=== PATIENT | male | born 1960 | race Caucasian/White ===

== ENCOUNTER 2017-06-07 11:25 | Outpatient (CLI) | payer OTHER ==
[2017-06-07 13:49] LABS: HB2 TOTAL 16.5 g/dL; HEMOGLOBIN A1C 1.21 g/dL; HEMOGLOBIN A1C % 8.9 % (4.6-6.2)
== END 2017-06-07 11:26 | disposition home or self-care (01) ==
LOC: LAB.R 11:25
PROVIDERS: ATTEND Physician Assistant Medical
DX: E11.9 Type 2 diabetes mellitus without complications (principal); Z79.899 Other long term (current) drug therapy
CPT/HCPCS: 82947; 83036

== ENCOUNTER 2017-09-30 14:45 | Emergency (ER) | payer OTHER ==
[2017-09-30] MEDS ORDERED: KETOROLAC 60 MG/2 ML VIAL IM STA (15:06)
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
[2017-09-30 15:16] VITALS: BP 129/88
--- NOTE | 2017-09-30 16:09 | XRAY Report ---
EXAM: RIGHT RIB RADIOGRAPHY EXAM DATE: 09/30/2017 03:49 PM. CLINICAL HISTORY: R sided chest pain. COMPARISON: None. TECHNIQUE: 1 view of the chest and 2 views of the ribs. FINDINGS: Bones: No acute fractures. Lungs: No dense consolidation. No pneumothorax. No pleural effusions. Mediastinum: Heart and mediastinal contours are unremarkable. Other: None. IMPRESSION: Unremarkable chest and rib radiography. [facility] Referring Provider Line: [phone] SITE ID: [id number]
--- NOTE | 2017-09-30 16:09 | XRAY Preliminary Report ---
Exam: XR RIBS W/PA CHEST RT IMPRESSION: Unremarkable chest and rib radiography. [facility] SITE ID: [id number]
[2017-09-30 16:10] LABS: BASOPHILS # (AUTO) 0.1 10^3/uL (0.0-0.1); BASOPHILS % (AUTO) 0.8 %; EOSINOPHILS % (AUTO) 0.2 %; HGB - HEMOGLOBIN 14.2 g/dL (14.0-18.0); LYMPHOCYTES # (AUTO) 2.7 10^3/uL (1.5-3.5); LYMPHOCYTES % (AUTO) 22.3 %; MEAN CORPUSCULAR HGB CONC 33.6 g/dL (32.0-36.0); MEAN CORPUSCULAR VOLUME 95.4 fL (80.0-94.0); NEUTROPHILS # (AUTO) 8.2 10^3/uL (1.5-6.6); NEUTROPHILS % (AUTO) 68.7 %; PLT - PLATELET COUNT 406 10^3/uL (130-450); RED BLOOD COUNT 4.44 10^6/uL (4.70-6.10); RED CELL DISTRIBUTION WIDTH 12.7 % (12.0-15.0)
[2017-09-30 16:37] LABS: ALBUMIN 4.1 g/dL (3.2-5.5); ALBUMIN/GLOBULIN RATIO 1.1 (1.0-2.2); BILIRUBIN,TOTAL 0.6 mg/dL (0.2-1.0); CALCIUM 9.3 mg/dL (8.5-10.3); TOTAL PROTEIN 7.7 g/dL (6.7-8.2)
== END 2017-09-30 16:50 | disposition home or self-care (01) ==
LOC: ED 14:45
DX: S29.011A Strain of muscle and tendon of front wall of thorax, initial encounter (principal); X50.9XXA Other and unspecified overexertion or strenuous movements or postures, initial encounter; I10 Essential (primary) hypertension; E11.9 Type 2 diabetes mellitus without complications; Z79.84 Long term (current) use of oral hypoglycemic drugs
CPT/HCPCS: 36415; 80053; 83690; 84484; 85025; 93005; 99282; 99283

== ENCOUNTER 2017-10-14 08:05 | Outpatient (CLI) | payer OTHER ==
[2017-10-14 11:50] LABS: CHOL/HDL RATIO 3.1 (<5.0); CHOLESTEROL 151 mg/dL; HDL CHOLESTEROL 48 mg/dL; LDL CHOLESTEROL,CALCULATED 79 mg/dL; LDL/HDL RATIO 1.6 (<3.6); VLDL CHOLESTEROL 24 mg/dL
[2017-10-14 12:14] LABS: HB2 TOTAL 16.1 g/dL; HEMOGLOBIN A1C 0.9 g/dL; HEMOGLOBIN A1C % 7.3 % (4.6-6.2)
== END 2017-10-14 08:06 | disposition home or self-care (01) ==
LOC: LAB.R 08:05
PROVIDERS: ATTEND Physician Assistant Medical
DX: Z12.5 Encounter for screening for malignant neoplasm of prostate (principal); Z79.899 Other long term (current) drug therapy; E11.9 Type 2 diabetes mellitus without complications; E03.9 Hypothyroidism, unspecified; Z00.00 Encounter for general adult medical examination without abnormal findings
CPT/HCPCS: 80061; 83036; 83721; 84153; 84443

== ENCOUNTER 2017-11-01 19:04 | Outpatient (CLI) | payer OTHER ==
--- NOTE | 2017-11-02 09:20 | Ultrasound Report ---
Procedure Date: 11/01/2017 Accession Number: [id number] / [id number] Procedure: US - Head or Neck Soft Tissue CPT Code: FULL RESULT: EXAM: Head or Neck Soft Tissue DATE: 11/01/2017 7:39 PM CLINICAL HISTORY: HYPOTHYROIDISM COMPARISON: None. TECHNIQUE: Real time sonographic imaging of the thyroid was performed by the vac press operator. Multiple instruments sales representative static images were saved for review. FINDINGS: THYROID GLAND: Right Lobe: 4.4 x 3.4 x 3.3 cm, volume 26 cc. Normal background echotexture. Right Lobe Nodules: There is a 3.3 x 3.1 x 2.8 cm spongiform nodule in the midportion of the right lobe. Left Lobe: 3.9 x 1.3 x 1.2 cm, volume 3 cc. Normal background echotexture. Left Lobe Nodules: Tiny nodules are present, the largest, in the lower pole, measuring 0.9 x 0.8 x 0.5 cm.. Isthmus: 0.5 cm AP. Isthmic Nodules: None. LYMPH NODES: No adenopathy demonstrated in the central or lateral compartment. OTHER: None. IMPRESSION: 1. Spongiform 3.3 cm nodule in the midportion of the right lobe. Consider fine-needle aspiration, based on CHRISTOPHER recommendations. Tiny subcentimeter nodules in the left lobe. Management recommendations are based on 2015 [place] [employer] Management Guidelines for Adult Patients with Thyroid Nodules and Differentiated Thyroid Cancer. [facility]
== END 2017-11-01 19:05 | disposition home or self-care (01) ==
LOC: DI 19:04
PROVIDERS: ATTEND Physician Assistant Medical
DX: E03.9 Hypothyroidism, unspecified (principal); E04.1 Nontoxic single thyroid nodule
CPT/HCPCS: 76536

== ENCOUNTER 2018-01-02 08:49 | Outpatient (CLI) | payer OTHER ==
[2018-01-02] MEDS ORDERED: BUFFERED LIDOCAINE 10 ML SYRINGE IU ONE (11:03)
--- NOTE | 2018-01-02 11:46 | Ultrasound Report ---
Reason: THYROID LESION Procedure Date: 01/02/2018 Accession Number: [id number] / [id number] Procedure: US - Fine Needle Aspiration CPT Code: FULL RESULT: PROCEDURE: ULTRASOUND GUIDED FNA Comparisons: Thyroid ultrasound 11/01/2017 PREOPERATIVE DIAGNOSIS: Nodule in right thyroid lobe POSTOPERATIVE DIAGNOSIS: Same TECHNIQUE: Following written and oral informed consent including procedure risks and alternatives, the patient was brought to the ultrasound suite and positioned. A standard timeout was performed which verified the patient's name, date of , and right thyroid gland as the appropriate site. Using local anesthesia, sterile technique, and direct ultrasound control, a 22-gauge needle was advanced to the nodule. A total of 4 aspirate samples were obtained. The patient tolerated the procedure well and there were no immediate complications. FINDINGS: Real-time ultrasound performed with static images saved to the PACS demonstrating the needle directed into the nodule. IMPRESSION: Uncomplicated ultrasound guided fine needle aspiration as described. Pathology results will be reported separately. [facility]
== END 2018-01-02 08:50 | disposition home or self-care (01) ==
LOC: DI 08:49
PROVIDERS: ATTEND Surgery
DX: E04.1 Nontoxic single thyroid nodule (principal)
CPT/HCPCS: 10022

== ENCOUNTER 2018-01-09 06:12 | Day surgery (SDC) | payer OTHER ==
[2018-01-09] MEDS ORDERED: LACTATED RINGERS 1,000 ML IV ONE (07:06)
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
[2018-01-09] MEDS ORDERED: MIDAZOLAM 2 MG/2 ML VIAL IVP ONE (08:05)
[2018-01-09] MEDS ORDERED: fentaNYL 250 MCG/5 ML VIAL IVP ONE (08:05)
[2018-01-09 09:18] VITALS: BP 110/69
== END 2018-01-09 06:13 | disposition home or self-care (01) ==
LOC: SDS 06:12
PROVIDERS: ATTEND Surgery
PROC: 0DBN8ZZ Excision of Sigmoid Colon, Via Natural or Artificial Opening Endoscopic (ICD-10-PCS; principal; 2018-01-09 07:30)
DX: Z12.11 Encounter for screening for malignant neoplasm of colon (principal); D12.5 Benign neoplasm of sigmoid colon; K64.8 Other hemorrhoids; K57.30 Diverticulosis of large intestine without perforation or abscess without bleeding; E11.9 Type 2 diabetes mellitus without complications; I10 Essential (primary) hypertension; G47.30 Sleep apnea, unspecified; Z87.891 Personal history of nicotine dependence
CPT/HCPCS: 45380; J3010; J7120

== ENCOUNTER 2018-02-09 08:00 | Outpatient (CLI) | payer OTHER ==
[2018-02-09 13:17] LABS: HB2 TOTAL 15.2 g/dL; HEMOGLOBIN A1C 0.99 g/dL; HEMOGLOBIN A1C % 8.1 % (4.6-6.2)
== END 2018-02-09 08:01 ==
LOC: LAB.R 08:00
PROVIDERS: ATTEND Physician Assistant Medical
DX: Z79.899 Other long term (current) drug therapy (principal); E11.9 Type 2 diabetes mellitus without complications
CPT/HCPCS: 82947; 83036

== ENCOUNTER 2018-02-13 11:02 | Outpatient (CLI) | payer OTHER | END 2018-02-13 11:03 | disposition home or self-care (01) | LOC: SC 11:02 | PROVIDERS: ATTEND Internal Medicine Pulmonary Disease | DX: G47.33 Obstructive sleep apnea (adult) (pediatric) (principal) | CPT/HCPCS: 99203; 99212 ==

== ENCOUNTER 2018-05-22 19:16 | Outpatient (CLI) | payer OTHER | END 2018-05-22 19:17 | disposition home or self-care (01) | LOC: SC 19:16 | PROVIDERS: ATTEND Internal Medicine Pulmonary Disease | DX: G47.33 Obstructive sleep apnea (adult) (pediatric) (principal) | CPT/HCPCS: 95810 ==

== ENCOUNTER 2018-05-24 10:20 | Outpatient (CLI) | payer OTHER ==
[2018-05-24 13:55] LABS: HB2 TOTAL 15.6 g/dL; HEMOGLOBIN A1C 1.14 g/dL; HEMOGLOBIN A1C % 8.8 % (4.6-6.2)
== END 2018-05-24 23:59 | disposition home or self-care (01) ==
LOC: LAB.R 10:20
PROVIDERS: ATTEND Physician Assistant Medical
DX: E11.9 Type 2 diabetes mellitus without complications (principal); Z79.899 Other long term (current) drug therapy
CPT/HCPCS: 82947; 83036

== ENCOUNTER 2018-06-01 08:00 | Outpatient (CLI) | payer OTHER | END 2018-06-01 23:59 | disposition home or self-care (01) | LOC: LAB.R 08:00 | PROVIDERS: ATTEND Physician Assistant Medical | DX: Z79.899 Other long term (current) drug therapy (principal); E11.9 Type 2 diabetes mellitus without complications | CPT/HCPCS: 82043 ==

== ENCOUNTER 2018-06-01 13:46 | Outpatient (CLI) | payer OTHER | END 2018-06-01 13:47 | disposition home or self-care (01) | LOC: SC 13:46 | PROVIDERS: ATTEND Nurse Practitioner Family | DX: G47.33 Obstructive sleep apnea (adult) (pediatric) (principal); G47.00 Insomnia, unspecified | CPT/HCPCS: 99212; 99214 ==

== ENCOUNTER 2018-09-19 08:47 | Outpatient (CLI) | payer OTHER ==
[2018-09-19 09:34] LABS: ALBUMIN 4.5 g/dL (3.2-5.5); ALBUMIN/GLOBULIN RATIO 1.4 (1.0-2.2); ALKALINE PHOSPHATASE 65 IU/L (42-121); ALT ALANINE AMINOTRANSFERASE 37 IU/L (10-60); AST ASPARTATE AMINOTRANSFERASE 26 IU/L (10-42); BUN - BLOOD UREA NITROGEN 17 mg/dL (6-20); CALCIUM 9.9 mg/dL (8.5-10.3); CARBON DIOXIDE - CO2 24 mmol/L (21-32); CHLORIDE 101 mmol/L (101-111); CHOL/HDL RATIO 3.2 (<5.0); CHOLESTEROL 177 mg/dL; CREATININE 0.7 mg/dL (0.6-1.2); GFR - MDRD 117 (>89); GLUCOSE 141 mg/dL (70-100); HB2 TOTAL 14.8 g/dL; HDL CHOLESTEROL 56 mg/dL; HEMOGLOBIN A1C 0.53 g/dL; HEMOGLOBIN A1C % 5.4 % (4.6-6.2); LDL CHOLESTEROL,CALCULATED 108 mg/dL; LDL/HDL RATIO 1.9 (<3.6); SODIUM 137 mmol/L (135-145); TOTAL PROTEIN 7.8 g/dL (6.7-8.2); VLDL CHOLESTEROL 13 mg/dL
[2018-09-19 09:37] LABS: CREATININE,URINE 92.1 mg/dL
[2018-09-19 09:38] LABS: MICROALBUMIN,URINE < 0.2 mg/dL (0-300.0)
== END 2018-09-19 08:48 | disposition home or self-care (01) ==
LOC: LAB 08:47
PROVIDERS: ATTEND Internal Medicine
DX: E11.9 Type 2 diabetes mellitus without complications (principal)
CPT/HCPCS: 36415; 80053; 80061; 82043; 82570; 83036; 83721

== ENCOUNTER 2019-11-14 13:18 | Outpatient (CLI) | payer OTHER ==
[2019-11-14 13:47] LABS: BASOPHILS # (AUTO) 0.1 10^3/uL (0.0-0.1); BASOPHILS % (AUTO) 0.8 %; EOSINOPHILS # (AUTO) 0.1 10^3/uL (0.0-0.7); EOSINOPHILS % (AUTO) 0.8 %; HGB - HEMOGLOBIN 13.3 g/dL (14.0-18.0); LYMPHOCYTES # (AUTO) 1.9 10^3/uL (1.5-3.5); LYMPHOCYTES % (AUTO) 30.8 %; MEAN CORPUSCULAR HEMOGLOBIN 31.9 pg (27.0-31.0); MEAN CORPUSCULAR HGB CONC 33.7 g/dL (32.0-36.0); MEAN CORPUSCULAR VOLUME 94.7 fL (80.0-94.0); MEAN PLATELET VOLUME 9.6 fL (7.4-11.4); MONOCYTES # (AUTO) 0.6 10^3/uL (0.0-1.0); MONOCYTES % (AUTO) 9.1 %; NEUTROPHILS # (AUTO) 3.6 10^3/uL (1.5-6.6); PLT - PLATELET COUNT 377 10^3/uL (130-450); RED BLOOD COUNT 4.17 10^6/uL (4.70-6.10); RED CELL DISTRIBUTION WIDTH 11.9 % (12.0-15.0); WHITE BLOOD COUNT 6.1 x10^3/uL (4.8-10.8)
[2019-11-14 13:59] LABS: CREATININE,URINE 103.1 mg/dL; MICROALBUM/CREATININE RATIO,UR 4.8 ug/mg (<30.0); MICROALBUMIN,URINE 0.5 mg/dL (0-300.0)
[2019-11-14 14:08] LABS: ALBUMIN 4.3 g/dL (3.2-5.5); ALBUMIN/GLOBULIN RATIO 1.3 (1.0-2.2); ALKALINE PHOSPHATASE 63 IU/L (42-121); ALT ALANINE AMINOTRANSFERASE 45 IU/L (10-60); AST ASPARTATE AMINOTRANSFERASE 22 IU/L (10-42); BILIRUBIN,TOTAL 1.2 mg/dL (0.2-1.0); BUN - BLOOD UREA NITROGEN 16 mg/dL (6-20); CALCIUM 9.4 mg/dL (8.5-10.3); CARBON DIOXIDE - CO2 27 mmol/L (21-32); CHLORIDE 99 mmol/L (101-111); CHOLESTEROL 143 mg/dL; CREATININE 0.8 mg/dL (0.6-1.2); GLUCOSE 196 mg/dL (70-100); HDL CHOLESTEROL 47 mg/dL; LDL CHOLESTEROL,CALCULATED 78 mg/dL; LDL/HDL RATIO 1.7 (<3.6); SODIUM 135 mmol/L (135-145); TOTAL PROTEIN 7.7 g/dL (6.7-8.2); VLDL CHOLESTEROL 18 mg/dL
[2019-11-14 14:20] LABS: THYROID STIMULATING HORMONE 0.36 uIU/mL (0.34-5.60)
[2019-11-14 14:22] LABS: FREE T4 (FREE THYROXINE) 0.96 ng/dL (0.58-1.64)
== END 2019-11-14 13:19 | disposition home or self-care (01) ==
LOC: LAB 13:18
PROVIDERS: ATTEND Family Medicine
DX: E11.9 Type 2 diabetes mellitus without complications (principal); Z78.9 Other specified health status; I10 Essential (primary) hypertension
CPT/HCPCS: 36415; 80053; 80061; 81599; 82043; 82570; 83036; 83721; 84439; 84443; 85025

== ENCOUNTER 2020-02-28 20:18 | Outpatient (CLI) | payer OTHER ==
--- NOTE | 2020-02-29 12:45 | Ultrasound Report ---
PROCEDURE: Duplex Ext Veins Left INDICATIONS: VASCULITIS LEFT ANKLE TECHNIQUE: Real-time imaging, as well as color and pulse Doppler interrogation, were performed of the lower extr emity deep veins from the inguinal ligament to the popliteal fossa. COMPARISON: None. FINDINGS: The deep veins are normally compressible, and free of intraluminal thrombus. Color and pu lse Doppler demonstrate normal phasic intraluminal flow. There is normal augmentation response to di stal compression maneuver. There is a hypoechoic focus in the medial posterior fossa measuring 2.9 x 0.9 x 2.8 cm. IMPRESSION: No deep venous thrombosis. Blackmon's cyst is noted. Reviewed by: Nori Shane MD on 02/29/2020 12:43 PM PST Approved by: Nori Shane MD on 02/29/2020 12:43 PM [facility] Station ID: [id number]
== END 2020-02-28 20:19 | disposition home or self-care (01) ==
LOC: DI 20:18
PROVIDERS: ATTEND Family Medicine
DX: I77.6 Arteritis, unspecified (principal); M71.22 Synovial cyst of popliteal space [Baker], left knee

== ENCOUNTER 2020-05-15 17:36 | Outpatient (CLI) | payer OTHER ==
--- NOTE | 2020-05-16 12:27 | XRAY Report ---
PROCEDURE: Shoulder 3 View BILAT INDICATIONS: BILATERAL SHOULDER PAIN TECHNIQUE: 6 views of the shoulder were acquired. COMPARISON: None. FINDINGS: Bones: No fractures or dislocations but there is moderate osteoarthritis at the AC joint and mild ar thritis at the glenohumeral joints, symmetric bilaterally.. No suspicious bony lesions. Visualized ribs appear intact. Soft tissues: No suspicious soft tissue calcifications. IMPRESSION: Symmetric mild to moderate degenerative osteoarthritis involving the shoulder joints, wi thout trauma. Reviewed by: Kj Moyer MD on 05/16/2020 12:25 PM PST Approved by: Kj Moyer MD on 05/16/2020 12:25 PM PST Station ID: [id number]
== END 2020-05-15 17:37 | disposition home or self-care (01) ==
LOC: DI 17:36
PROVIDERS: ATTEND Family Medicine
DX: M19.012 Primary osteoarthritis, left shoulder (principal); M19.011 Primary osteoarthritis, right shoulder

== ENCOUNTER 2022-06-11 16:44 | Emergency (ER) | payer BC, OTHER ==
[2022-06-11 16:53] VITALS: BP 119/90
[2022-06-11] MEDS ORDERED: cephALEXin 250 MG CAPSULE PO STA (17:08)
--- NOTE | 2022-06-11 17:10 | ED Physician Documentation ---
PD HPI WOUND RECHECK - Stated complaint Stated Complaint: LEG PAIN/LESIONS - Chief complaint Chief Complaint: Wound - Histroy obtained from History obtained from: Patient - Additional information Additional information: 61-year-old gentleman with type 2 diabetes, was poorly controlled but now on Jardiance and doing better. 2 weeks of quite painful lesions to the left greater than right posterior lower extremities not associated with fevers or chills. Was put on steroid cream which which made it worse. PD PAST MEDICAL HISTORY - Past Medical History Cardiovascular: Hypertension Respiratory: Sleep apnea, CPAP use Endocrine/Autoimmune: Type 2 diabetes, Other GI: Diverticulitis : None HEENT: None Musculoskeletal: Osteoarthritis, Chronic back pain Derm: Other - Past Surgical History Past Surgical History: Yes General: Appendectomy, Colonoscopy Ortho: Arthroscopic surgery Derm: Other - Present Medications Home Medications: Ambulatory Orders Medication Instructions Recorded Confirmed Metformin HCl 1,000 mg PO BID 06/20/13 06/14/18 oxyCODONE [Roxicodone] 5 mg PO Q4-6H PRN 06/20/13 06/14/18 Glimepiride 1 mg PO BIDWM 06/14/18 06/14/18 Irbesartan [Avapro] 150 mg PO DAILY 06/14/18 06/14/18 Sildenafil Citrate 25 mg PO DAILY PRN 06/14/18 06/14/18 cephALEXin [Keflex] 500 mg PO Q6H #40 cap 06/11/22 - Allergies Allergies/Adverse Reactions: Allergies Allergy/AdvReac Type Severity Reaction Status Date / Time lisinopril AdvReac Unknown Verified 06/11/22 16:48 - Social History Does the pt smoke?: No Smoking Status: Former smoker PD ED PE NORMAL - Vitals Vital signs reviewed: Yes - General General: Alert and oriented X 3, No acute distress - Extremities Extremities: Other (There are spotty areas of what look like cellulitis to the posterior ankles and lower calves. They are tender. No fluctuance or purulence. Nothing to culture.) - Neuro Neuro: Alert and oriented X 3, Normal speech Results - Vitals Vitals: Vital Signs - 24 hr 06/11/22 16:48 Temperature 36.5 C Heart Rate 100 Respiratory 16 Rate Blood Pressure 119/90 H O2 Saturation 96 Oxygen O2 Source Room air PD Medical Decision Making - ED course ED course: 61-year-old gentleman with type 2 diabetes presents with what looks like spotty staph cellulitis to the lower extremities. There is nothing to culture. Fungal infection is considered but it is more painful than itchy. We will trial Keflex and referred to dermatology. Departure - Departure Disposition: 01 Home, Self Care Clinical Impression: Lower extremity cellulitis Qualifiers: Laterality: unspecified laterality Qualified Code(s): L03.119 - Cellulitis of unspecified part of limb Condition: Good Record reviewed to determine appropriate education?: Yes Instructions: Cellulitis Dc Prescriptions: cephALEXin [Keflex] 500 mg PO Q6H #40 cap Comments: I sent your prescription electronically to the [facility] pharmacy here in [place]. Go directly there to pick it up. Return for new or worsening symptoms. As discussed, reasonable to follow-up with Ruth Oakley for consideration for biopsy if not rapidly improving. Her phone number is [phone].
== END 2022-06-11 17:17 | disposition home or self-care (01) ==
LOC: ED 16:44
DX: L03.119 Cellulitis of unspecified part of limb (principal); Z87.891 Personal history of nicotine dependence
CPT/HCPCS: 99282; 99283; A9270

== ENCOUNTER 2022-06-17 10:00 | Outpatient (CLI) | payer BC ==
[2022-06-17 10:20] LABS: BASOPHILS # (AUTO) 0.1 10^3/uL (0.0-0.1); EOSINOPHILS # (AUTO) 0.1 10^3/uL (0.0-0.7); HGB - HEMOGLOBIN 15.1 g/dL (14.0-18.0); LYMPHOCYTES # (AUTO) 1.7 10^3/uL (1.5-3.5); LYMPHOCYTES % (AUTO) 23.8 %; MEAN CORPUSCULAR HEMOGLOBIN 32.1 pg (27.0-31.0); MEAN CORPUSCULAR HGB CONC 33.6 g/dL (32.0-36.0); MEAN CORPUSCULAR VOLUME 95.5 fL (80.0-94.0); MEAN PLATELET VOLUME 9.6 fL (7.4-11.4); MONOCYTES # (AUTO) 0.6 10^3/uL (0.0-1.0); MONOCYTES % (AUTO) 8.4 %; NEUTROPHILS # (AUTO) 4.5 10^3/uL (1.5-6.6); NEUTROPHILS % (AUTO) 65.4 %; PLT - PLATELET COUNT 398 10^3/uL (130-450); RED BLOOD COUNT 4.71 10^6/uL (4.70-6.10); RED CELL DISTRIBUTION WIDTH 12.3 % (12.0-15.0); WHITE BLOOD COUNT 6.9 x10^3/uL (4.8-10.8)
[2022-06-17 10:37] LABS: ALBUMIN 4.9 g/dL (3.2-5.5); ALBUMIN/GLOBULIN RATIO 1.2 (1.0-2.2); ALKALINE PHOSPHATASE 72 IU/L (42-121); ALT ALANINE AMINOTRANSFERASE 29 IU/L (10-60); AST ASPARTATE AMINOTRANSFERASE 21 IU/L (10-42); BILIRUBIN,TOTAL 1.2 mg/dL (0.2-1.0); BUN - BLOOD UREA NITROGEN 19 mg/dL (6-20); CALCIUM 10.2 mg/dL (8.5-10.3); CARBON DIOXIDE - CO2 27 mmol/L (21-32); CHLORIDE 96 mmol/L (101-111); CREATININE 0.9 mg/dL (0.6-1.2); GFR - MDRD 86 (>89); GLUCOSE 214 mg/dL (70-100); POTASSIUM 4.3 mmol/L (3.5-5.0); SODIUM 132 mmol/L (135-145); TOTAL PROTEIN 8.9 g/dL (6.7-8.2)
[2022-06-17 10:45] LABS: CRP - C-REACTIVE PROTEIN < 1.0 mg/dL (0-1.0)
[2022-06-17 11:04] LABS: RHEUMATOID FACTOR NEGATIVE (Negative)
[2022-06-17 12:25] LABS: ESTIMATED AVERAGE GLUCOSE 166 mg/dL (70-100); HEMOGLOBIN A1c% 7.4 % (4.27-6.07)
[2022-06-18 18:08] LABS: ANTI-DNA (DS) AB QN 1 IU/mL (0-9); CENTROMERE B ANTIBODIES <0.2 AI (0.0-0.9); CHROMATIN ANTIBODIES <0.2 AI (0.0-0.9); JO-1 AB <0.2 AI (0.0-0.9); RIBOSOMAL P ANTIBODIES <0.2 AI (0.0-0.9); RNP ANTIBODIES <0.2 AI (0.0-0.9); SCLERODERMA-70 ANTIBODIES <0.2 AI (0.0-0.9); SJOGREN'S ANTI-SS-A <0.2 AI (0.0-0.9); SJOGREN'S ANTI-SS-B <0.2 AI (0.0-0.9); SMITH ANTIBODIES <0.2 AI (0.0-0.9); SMITH/RNP ANTIBODIES <0.2 AI (0.0-0.9)
[2022-06-21 13:10] LABS: ATYPICAL pANCA <1:20 titer (Neg:<1:20); CYTOPLASMIC (C-ANCA) <1:20 titer (Neg:<1:20); PERINUCLEAR (P-ANCA) <1:20 titer (Neg:<1:20)
== END 2022-06-17 10:01 | disposition home or self-care (01) ==
LOC: LAB 10:00
PROVIDERS: ATTEND Student in an Organized Health Care Education/Training Program
DX: L98.9 Disorder of the skin and subcutaneous tissue, unspecified (principal); E11.9 Type 2 diabetes mellitus without complications
CPT/HCPCS: 36415; 80053; 83036; 85025; 85651; 86140; 86225; 86235; 86430

== ENCOUNTER 2022-12-22 12:34 | Outpatient (CLI) | payer OTHER ==
--- NOTE | 2022-12-22 15:59 | XRAY Report ---
PROCEDURE: Lumbar Spine 2 View INDICATIONS: MID BACK PAIN TECHNIQUE: 3 views of the lumbar spine were acquired. COMPARISON: None. FINDINGS: Bones: Transitional spinal anatomy is noted. Small rudimentary ribs are noted at the T12 level. For t his report, the lumbosacral transitional element is designated as a partially sacralized L5. There is normal bony alignment. No vertebral body compression fractures. No suspicious bony lesions. Disc spaces are well-maintained, although there is mild anterior lipping of the vertebral body endplates. There is mild facet hypertrophy. The sacroiliac joints appear partially ankylosed bilaterally. Soft tissues: Overlying bowel gas pattern is normal. No suspicious soft tissue calcifications. IMPRESSION: 1.Transitional spinal anatomy. 2.Mild spondylosis. 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 Reviewed by: David Grimaldo MD on 12/22/2022 3:58 PM PDT Approved by: David Grimaldo MD on 12/22/2022 3:58 PM PDT Station ID: [id number]
--- NOTE | 2022-12-22 16:02 | XRAY Report ---
PROCEDURE: Thoracic Spine 2 View INDICATIONS: MID BACK PAIN TECHNIQUE: 2 views of the thoracic spine were acquired. COMPARISON: None. FINDINGS: Bones: No acute fractures or dislocations. No suspicious bony lesions. 11 well-formed rib pairs are seen with small rudimentary ribs at T12. Visualized ribs appear intact. Mild multilevel degenerative endplate changes. Soft tissues: No paravertebral stripe thickening. IMPRESSION: 1.No acute osseous abnormality. 2.Mild spondylosis. 3.Transitional thoracolumbar anatomy. Reviewed by: David Grimaldo MD on 12/22/2022 4:00 PM PDT Approved by: David Grimaldo MD on 12/22/2022 4:00 PM PDT Station ID: [id number]
== END 2022-12-22 12:35 | disposition home or self-care (01) ==
LOC: DI 12:34
PROVIDERS: ATTEND Student in an Organized Health Care Education/Training Program
DX: M47.814 Spondylosis without myelopathy or radiculopathy, thoracic region (principal); M47.816 Spondylosis without myelopathy or radiculopathy, lumbar region; Q76.49 Other congenital malformations of spine, not associated with scoliosis

== ENCOUNTER 2023-04-07 07:16 | Outpatient (CLI) | payer OTHER ==
--- NOTE | 2023-04-07 10:21 | CT Report ---
PROCEDURE: HEAD WO INDICATIONS: HEADACHE TECHNIQUE: Noncontrast 4.5 mm thick angled axial sections acquired from the foramen magnum to the vertex. For r adiation dose reduction, the following was used: automated exposure control, adjustment of mA and/or kV according to patient size. COMPARISON: None. FINDINGS: Image quality: Excellent. CSF spaces: Basal cisterns are patent. No extra-axial fluid collections. Ventricles are normal in s ize and shape. Brain: No midline shift. No intracranial masses or hemorrhage. Mild age-related global volume loss. Khalil-white matter interface is normal. Skull and face: Calvarium and visualized facial bones are intact, without suspicious lesions. Sinuses: Visualized sinuses and mastoids are clear. IMPRESSION: No acute intracranial pathology. Reviewed by: Clifton Bundy MD on 04/07/2023 10:19 AM [facility] Approved by: Clifton Bundy MD on 04/07/2023 10:19 AM [facility] Station ID: [id number]
== END 2023-04-07 07:17 | disposition home or self-care (01) ==
LOC: DI 07:16
PROVIDERS: ATTEND Student in an Organized Health Care Education/Training Program
DX: R51.9 Headache, unspecified (principal)

== ENCOUNTER 2023-04-07 07:17 | Outpatient (CLI) | payer OTHER ==
--- NOTE | 2023-04-07 09:44 | CT Report ---
PROCEDURE: Low Dose Lung Cancer Screen INDICATIONS: ENCOUNTER FOR SCREENING FOR CARDIOVASCULAR DISORDE TECHNIQUE: A CT scan of the chest was performed. Intravenous contrast media was not administered. Images were re corded and evaluated at appropriate window settings. Reformats: axial MIP of the chest, coronal and s agittal. For radiation dose reduction, the following was used: automated exposure control, adjustment of mA and/or kV according to patient size. COMPARISON: None. FINDINGS: Image quality: Excellent. Prior cancer history: Unsure. Lungs and pleura: No pleural effusions. No pneumothorax. Focal area of groundglass opacity and micro nodularity in the right upper lobe, for example series 3, image 133. Mild lingular and bibasilar atel ectasis. No solid pulmonary nodule. Mediastinum: Heart size is normal. No pericardial effusion. Moderate coronary artery calcifications. No large vessel abnormality. No mediastinal adenopathy by size criteria. Chest wall and lower neck: Right thyroid gland nodule, previously underwent FNA in 2018. No axillary or supraclavicular adenopathy by size. Bones: No acute or suspicious osseous abnormality. Upper Abdomen: Unremarkable. IMPRESSION: Focal area of groundglass opacity and micronodularity in the right upper lobe is favored to reflect i nfectious/inflammatory etiology. Lung RAD: 0 - Incomplete. Recommendation: Recommend follow-up low dose CT in 3 months to demonstrate resolution/stability. Non-Lung Significant Findings: Coronary Arterial Calcification - Moderate or Severe. Consider cardiol ogy referral. Reviewed by: Sherrill Child MD on 04/07/2023 9:43 AM PST Approved by: Sherrill Child MD on 04/07/2023 9:43 AM PST Station ID: [id number]
--- NOTE | 2023-04-07 11:47 | Ultrasound Report ---
PROCEDURE: Aorta Screening INDICATIONS: ENCOUNTER FOR SCREENING FOR CARDIOVASCULAR DISORDE TECHNIQUE: Real time scanning was performed of the aorta and iliac arteries, with image documentatio n. COMPARISON: None. FINDINGS: Aorta: Proximal aortic diameter measures 1.5 x 1.4 cm. Mid-aorta measures 2.4 x 1.6 cm. Distal aor tic diameter is 1.4 x 1.5 cm. Iliac arteries: Right common iliac artery measures 1.2 x 1.2 cm. Left common iliac artery measures 1 x1 cm. IMPRESSION: 1.No sonographic evidence of abdominal aortic aneurysm. 2.Bilateral common iliac arteries are normal in caliber, where visualized. Recommended intervals for follow-up imaging of ectatic aortas and abdominal aortic aneurysms, per ACR consensus guidelines: 2.5-2.9 cm: 5 years 3.0-3.4 cm: 3 years 3.5-3.9 cm: 2 years 4.0-4.4 cm: 1 year 4.5-4.9 cm: 6 months + endovascular referral 5.0-5.5 cm: 3-6 months + endovascular referral Reviewed by: Christi Bowen MD on 04/07/2023 11:45 AM PST Approved by: Christi Bowen MD on 04/07/2023 11:45 AM PST Station ID: [id number]
== END 2023-04-07 07:18 | disposition home or self-care (01) ==
LOC: DI 07:17
PROVIDERS: ATTEND Student in an Organized Health Care Education/Training Program
DX: Z12.2 Encounter for screening for malignant neoplasm of respiratory organs (principal); R91.8 Other nonspecific abnormal finding of lung field; Z87.891 Personal history of nicotine dependence; Z13.6 Encounter for screening for cardiovascular disorders; R51.9 Headache, unspecified

== ENCOUNTER 2023-08-09 14:41 | Outpatient (CLI) | payer OTHER ==
--- NOTE | 2023-08-09 21:02 | XRAY Report ---
PROCEDURE: Chest 2V INDICATIONS: COUGH TECHNIQUE: 2 views of the chest were acquired. COMPARISON: None. FINDINGS: Surgical changes and devices: None. Lungs and pleura: No pleural effusions or pneumothorax. Subtle opacity at left infrahilar region is seen concerning for early infiltrate versus atelectasis. Mediastinum: Mediastinal contours appear normal. Heart size is normal. Bones and chest wall: No suspicious bony lesions. Overlying soft tissues appear unremarkable. IMPRESSION: Finding is concerning for small left infrahilar infiltrate versus atelectasis. No pleural effusion or pneumothorax. Right lung is clear. Clinical correlation and follow-up is recommended. Reviewed by: Stephen Brandt MD on 08/09/2023 9:00 PM PDT Approved by: Stephen Brandt MD on 08/09/2023 9:00 PM PDT Station ID: [id number]
== END 2023-08-09 14:42 | disposition home or self-care (01) ==
LOC: DI 14:41
PROVIDERS: ATTEND Nurse Practitioner Family
DX: R91.8 Other nonspecific abnormal finding of lung field (principal)

== ENCOUNTER 2023-10-03 07:22 | Outpatient (CLI) | payer OTHER ==
--- NOTE | 2023-10-03 10:23 | CT Report ---
PROCEDURE: Sinus INDICATIONS: RHINITIS TECHNIQUE: Noncontrast 3.0 mm axial images acquired from the frontal sinuses to the mid-sella, with coronal and sagittal reformats. For radiation dose reduction, the following was used: automated exposure control , adjustment of mA and/or kV according to patient size. COMPARISON: Correlation is made with head CT, 04/07/2023 FINDINGS: Image quality: Excellent. Maxillary Sinuses: There is a complete opacification of the left maxillary sinus. Minimal to mild muc osal thickening can be seen involving the inferior right maxillary sinus. There is demineralization s een of the superior aspects of the medial maxillary sinuses. Ethmoid Air Cells: No bony remodeling or destruction. Sinuses are clear. Sphenoid Sinuses: No bony remodeling or destruction. Sinuses are clear. Frontal Sinuses: No bony remodeling or destruction. Minimal mucosal thickening can be seen involving the inferomedial right frontal sinus. Ostiomeatal Complexes: The ostiomeatal complexes are nearly completely occluded by soft tissue thick ening. They are constitutionally narrowed, with bilateral Berry cells. Miscellaneous: Visualized intra-orbital contents are normal. No duyen bullosa. There is mild lef tward nasal septal deviation. IMPRESSION: Focal prominent left maxillary sinus disease, with milder mucosal thickening seen elsewhere. Constitutionally narrowed ostiomeatal complexes, which are nearly completely occluded by soft tissue thickening. Reviewed by: Neville Hernandez MD on 10/03/2023 9:22 AM [facility] Approved by: Neville Hernandez MD on 10/03/2023 9:22 AM [facility] Station ID: [id number]
== END 2023-10-03 07:23 | disposition home or self-care (01) ==
LOC: DI 07:22
PROVIDERS: ATTEND Student in an Organized Health Care Education/Training Program
DX: J32.0 Chronic maxillary sinusitis (principal)